=== PATIENT | female | born 1950 | race Caucasian/White ===

== ENCOUNTER → 2016-09-28 | Outpatient (CLI) | payer BC, OTHER ==
--- NOTE | 2016-09-28 10:59 | DIAGNOSTIC IMAGING REPORT ---
LEFT FOOT MIN 3 VIEWS HISTORY: 66 years Female acute left foot pain status post recent trauma COMPARISON: None available TECHNIQUE: 3 views of the left foot FINDINGS: The bones are mildly demineralized. 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 Mild interphalangeal and first digit and TP joint degenerative changes are seen. Mild tibiotalar osteoarthritis also noted. There is no acute fracture, dislocation or significant joint space narrowing. Negative for radiopaque foreign body. IMPRESSION: 1. No acute fracture or dislocation. 2. Degenerative changes as above. The above report was generated using voice recognition software. It may contain grammatical, syntax or spelling errors. Electronically signed by: Nitin Leon M.D. 09/28/2016 10:57 AM Dictated Date/Time: 09/28/2016 10:55 AM
== END | disposition home or self-care (01) ==
LOC: C.RDSM 10:25
PROVIDERS: ATTEND Family Medicine
DX: S99.922A Unspecified injury of left foot, initial encounter (principal); X58.XXXA Exposure to other specified factors, initial encounter